=== PATIENT | male | born 1970 | race Caucasian/White ===

== ENCOUNTER → 2025-02-12 16:32 | Outpatient (REF) | payer BC, SELFPAY | LOC: HWRAD 16:32 | DX: J40 Bronchitis, not specified as acute or chronic (principal) | CPT/HCPCS: 71046 ==

== ENCOUNTER → 2025-02-13 12:51 | Outpatient (REF) | payer BC, SELFPAY | LOC: RAD 12:51 | DX: R05.1 Acute cough (principal); R07.89 Other chest pain | CPT/HCPCS: 71275; Q9967 ==